=== PATIENT | female | born 1970 | race Caucasian/White ===

== ENCOUNTER → 2021-01-13 20:13 | Outpatient (CLI) | payer OTHER, SELFPAY | PROVIDERS: PCP Family Medicine; Referring Provider Family Medicine; Visit Provider Family Medicine | DX: R40.0 Somnolence (principal); G47.10 Hypersomnia, unspecified; E66.01 Morbid (severe) obesity due to excess calories | CPT/HCPCS: 95810 ==

== ENCOUNTER → 2023-01-21 | Outpatient (CLI) | payer OTHER, SELFPAY ==
[2023-01-21 19:34] LABS: Syphilis Antibodies Reactive
== END | disposition home or self-care (01) ==
PROVIDERS: PCP Family Medicine; Visit Provider Physician Assistant Medical
DX: L08.9 Local infection of the skin and subcutaneous tissue, unspecified (principal)
CPT/HCPCS: 36415; 86780

== ENCOUNTER 2023-01-30 10:36 | Emergency (ER) | payer OTHER, SELFPAY ==
[2023-01-30 10:37] VITALS: BP 108/54; PULSE 56; RESP 18; TEMP 35.9; O2SAT 99; BMI 44.6
--- NOTE | 2023-01-30 11:11 | ED.VIS.FEGU ---
HPI HPI - Female History of Present Illness Chief Complaint: Female C/O Informant: patient and spouse/S.O. Narrative Narrative: 52-year-old female presenting to the emergency room out of concerns of syphilis. Patient states that since October she has had a rash on her hands and her feet. She states that she had seen several doctors and recently tested positive for syphilis. There is a reactive test in our system from 21 January. She states that she followed up with infectious disease received a prescription for penicillin injection but has been unable to find a pharmacy to administer it. Her significant other also tested positive and is here seeking similar treatment. She denies any genital lesions. No neurologic symptoms. [facility] Medical History delivery delivered Encounter for Essure implantation FH: cholecystectomy Home Medications cholecalciferol (vitamin D3) 25 mcg (1,000 unit) capsule (Vitamin D3) 25 mcg PO DAILY 02/24/21 [History Last Taken Unknown] fluoxetine 40 mg capsule 40 mg PO DAILY 02/24/21 [History Last Taken Unknown] rosuvastatin 20 mg tablet (Crestor) 20 mg PO DAILY 02/24/21 [History Last Taken Unknown] vitamin B complex (B Complex-Vitamin B12 tablet) 1 tab PO .every other day 02/24/21 [History Last Taken Unknown] meloxicam 15 mg tablet ea PO 06/29/22 [History Last Taken Unknown] omeprazole 10 mg capsule,delayed release 40 mg PO DAILY 06/29/22 [History Last Taken Unknown] Allergy/AdvReac Type Severity Reaction Status Date / Time bupropion [From Wellbutrin] AdvReac headaches Verified 01/30/23 10:37 Family History Mother Cyst, breast Father Cancer rectal Social History Smoking Status: Former smoker how long ago did patient quit smokin years ROS ROS ED Constitutional Constitutional ED: Denies chills, fever(s) or weight loss Eyes Eyes: Denies change in vision or diplopia ENT ENT ED: Denies ear pain, rhinorrhea or sore throat Cardiovascular Cardiovascular: Denies chest pain, orthopnea, palpitations or racing heartbeat Respiratory/Chest Respiratory/Chest: Denies cough, dyspnea or orthopnea Gastrointestinal Gastrointestinal: Denies abdominal pain, diarrhea, nausea or vomiting Genitourinary Genitourinary ED: Denies dysuria, hematuria or urinary frequency Musculoskeletal Musculoskeletal: Denies arthralgias or myalgias Integumentary Reports rash; Denies abscess or Abrasions Neurologic Neurologic: Denies headache(s), paresthesias or weakness Psychiatric Psychiatric: Denies anxiety, depression, suicidal ideation or suicidal thoughts Endocrine Endocrinology: Denies polydipsia, polyphagia or polyuria Allergic/Immunologic Allergic/Immunologic ED: Denies mouth swelling, tongue swelling or urticaria EXAM Physical Exam Const Vital Signs: 01/30/23 10:37 Temperature 96.7 F L Temperature Source Temporal Pulse Rate 56 L Respiratory Rate 18 Blood Pressure 108/54 L Blood Pressure Mean 72 Pulse Ox 99 Oxygen Delivery Method Room Air Positive well nourished and well developed General Appearance ED: well developed HEENT Reports normocephalic, head/scalp atraumatic and moist mucous membranes Eyes PERRL and EOMs intact bilaterally Neck no lymphadenopathy, supple and no JVD Resp normal respiratory effort and clear to auscultation bilaterally Cardio regular rate, regular rhythm and no murmurs GI normal to inspection, nondistended, normoactive bowel sounds and non-tender Palpation: soft Back/Spine no CVA tenderness and normal ROM Extremity normal to inspection General Extremety ED: Negative for edema General Extremity: Negative for edema Neuro oriented x3 and CN's II-XII intact bilaterally Sensorium / Orientation: alert Motor Exam: strength 5/5 throughout Psych mental status grossly normal Mood & Affect: Negative for depressed or tearful Skin no wounds Skin Narrative: There are flat peeling lesions on the palms and soles. No evidence of secondary infection. These are mostly circular and flat. Some with a regular borders. 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 She will be given a dose of 2,400,000 units of penicillin G. She has follow-up with infectious disease scheduled Discharge Plan Triage Chief Complaint: Female C/O ED Provider: Daniele Baker Dx/Rx/DC Orders Clinical Impression: Syphilis Instructions: Syphilis Prescriptions: No Action rosuvastatin [Crestor] 20 mg tablet 20 mg PO DAILY fluoxetine 40 mg capsule 40 mg PO DAILY vitamin B complex [B Complex-Vitamin B12] Tablet 1 tab PO .every other day cholecalciferol (vitamin D3) [Vitamin D3] 25 mcg (1,000 unit) capsule 25 mcg PO DAILY omeprazole 10 mg capsule,delayed release(DR/EC) 40 mg PO DAILY meloxicam 15 mg tablet PO Patient Comments: take 1 tablet by mouth once daily Primary Care Provider: Ismael Camacho Referrals: Daniele Baker DO [Emergency Provider] - Ismael Camacho MD [Primary Care Provider] - Jasson Damon MD [Med Staff - Active Staff] - Keep Manjinder appointment Disposition Disposition: Home, Self Care
[2023-01-30] MEDS: Penicillin G Benzathine 2.4 MU/4 ML Syringe IM (12:21)
== END 2023-01-30 13:13 | disposition home or self-care (01) ==
LOC: ED 11:29
PROVIDERS: Emergency Provider Emergency Medicine; PCP Family Medicine; Visit Provider Emergency Medicine
DX: A53.9 Syphilis, unspecified (principal); Z87.891 Personal history of nicotine dependence; Z90.49 Acquired absence of other specified parts of digestive tract
CPT/HCPCS: 96372; 99282; J7030

== ENCOUNTER 2023-04-20 08:15 | Outpatient (RCR) | payer OTHER, SELFPAY | END 2023-04-22 23:59 | LOC: NS 08:15 | PROVIDERS: PCP Family Medicine; Referring Provider Nurse Practitioner Family; Visit Provider Nurse Practitioner Family | DX: Z71.3 Dietary counseling and surveillance (principal); R73.03 Prediabetes; K21.9 Gastro-esophageal reflux disease without esophagitis; G47.33 Obstructive sleep apnea (adult) (pediatric); E78.5 Hyperlipidemia, unspecified; E66.01 Morbid (severe) obesity due to excess calories; Z68.42 Body mass index [BMI] 45.0-49.9, adult; E88.819 Insulin resistance, unspecified | CPT/HCPCS: 97802 ==